=== PATIENT | female | born 1940 | race Two or more races ===

== ENCOUNTER 2018-07-09 09:16 | Outpatient (CLI) | payer OTHER | END 2018-07-09 09:21 | disposition home or self-care (01) | LOC: SONOGRAMA 09:16 | DX: E04.1 Nontoxic single thyroid nodule (principal) ==

== ENCOUNTER 2018-12-12 09:03 | Outpatient (CLI) | payer OTHER | END 2018-12-12 09:05 | disposition home or self-care (01) | LOC: SONOGRAMA 09:03 | DX: E04.1 Nontoxic single thyroid nodule (principal) ==

== ENCOUNTER → 2022-11-02 | Outpatient (CLI) | payer OTHER | END | disposition home or self-care (01) | LOC: SONOGRAMA 08:39 | PROVIDERS: ATTEND Pathology Anatomic Pathology & Clinical Pathology | DX: D34 Benign neoplasm of thyroid gland (principal); E04.9 Nontoxic goiter, unspecified; E06.3 Autoimmune thyroiditis; E04.2 Nontoxic multinodular goiter ==